=== PATIENT | female | born 1980 | race Hispanic/Latino ===

== ENCOUNTER → 2018-02-05 | Day surgery (SDC) | payer OTHER ==
[~2018-02-05] MED LIST: IBUPROFEN800 M1 PO
[2018-02-05 09:15] LABS: PT 11.2 SEC (9.4-12.5); PTT 27 SEC (25-37)
--- NOTE | 2018-02-19 13:14 | Operative Report ---
Operative/Inv Procedure Report Surgery Date: 02/05/18 Name of Procedure: Suction D&C Pre-Operative Diagnosis: Missed Post-Operative Diagnosis: Same Estimated Blood Loss: 50ml to 100ml Surgeon/Alligator Hunter: Anabella Fletcher MD Anesthesia: moderate sedation Operative/Procedure Note Note: Procedure note patient was taken the operating room placed on position after adequate anesthesia patient placed in dorsolithotomy position the vagina from dorsal fashion bladder was catheterized examination under anesthesia performed ring forcep was placed 12:00 on cervix cervix is dilated 29 Hegar to allow for the insertion of curved curet sharp curettage of the endometrial lining was performed consistent with products of conception gently a #8 curved curet was placed into the uterus suction curettage performed I intravenous Pitocin was started aid in uterine contractility which was apparent on since removed from the vagina patient was hemostatic and she was awakened from anesthesia and transferred recovery room awake and alert counts correct Findings: Consistent with products of conception
== END ==
LOC: STS 08:26
PROVIDERS: Specialist
DX: O02.1 Missed abortion (principal)
CPT/HCPCS: 36415; 88305; J2250